=== PATIENT | male | born 1970 | race Hispanic/Latino ===

== ENCOUNTER 2019-07-16 08:35 | Outpatient (CLI) | payer OTHER ==
--- NOTE | 2019-07-16 08:55 | ULT ---
SOFT TISSUE ULTRASOUND: CLINICAL HISTORY: Hernia. FINDINGS: Sonographic imaging of the right inguinal region does not reveal evidence of hernia with utilization of Valsalva maneuver. IMPRESSION: No evidence of right inguinal hernia by sonographic evaluation.. Transcribed Date/Time: 07/16/2019 8:59 AM
== END 2019-07-16 08:36 | disposition home or self-care (01) ==
LOC: BICULT 08:35
PROVIDERS: ATTEND Family Medicine
DX: K46.9 Unspecified abdominal hernia without obstruction or gangrene (principal)
CPT/HCPCS: 76999